=== PATIENT | male | born 1975 | race African-American/Black ===

== ENCOUNTER 2024-10-31 15:20 | Emergency (ER) | payer SELFPAY ==
[~2024-10-31] VITALS: Ht 188 cm; Wt 170.0 kg
[2024-10-31 15:22] VITALS: O2SAT 99
[2024-10-31 15:27] VITALS: BP 164/89; PULSE 96; RESP 16; TEMP 36.9; O2SAT 98
[2024-10-31] MEDS: LIDOCAINE 5% PATCH TOP ONE (15:53)
[2024-10-31] MEDS: ACETAMINOPHEN 325MG TABLET PO ONE (15:53)
[2024-10-31] MEDS: KETOROLAC 15MG/ML VIAL IM ONE (15:54)
[2024-10-31] MEDS ORDERED: LIDO700A30 TP (16:44)
[2024-10-31] MEDS ORDERED: CYCL10TA21 MT (16:44)
== END 2024-10-31 16:50 | disposition home or self-care (01) ==
LOC: ER 15:20
DX: M62.838 Other muscle spasm (principal); V43.52XA Car driver injured in collision with other type car in traffic accident, initial encounter; Y93.89 Activity, other specified; Y92.410 Unspecified street and highway as the place of occurrence of the external cause; Y99.8 Other external cause status
CPT/HCPCS: 99283; 96372; J1885